=== PATIENT | female | born 1970 | race Caucasian/White ===

== ENCOUNTER 2023-02-10 13:52 | Emergency (ER) | payer MEDICAID ==
[~2023-02-10] VITALS: Ht 167.6 cm; Wt 100.0 kg
[2023-02-10] MEDS ORDERED: NYSTATIN 60 GM POWDER-BULK CONTAINER TP STA (17:27)
[2023-02-10] MEDS ORDERED: fluconazole 150mg tablet PO ONE (17:30)
[2023-02-10] MEDS ORDERED: nystatin 15 GM powder TP ONE (18:15)
[2023-02-10] MEDS ORDERED: HYDROcodone/acetaminophen 10/325mg tab PO ONE (18:20)
[2023-02-10 19:57] VITALS: BP 127/59
--- NOTE | 2023-02-10 19:59 | NUR ---
Pt came late in my shift, and required urgent cleaning of widespread yeast wounds under breasts, abdominal folds, and at groin/shelby area. Began cleaning wounds, first with Ready Soft Bath cloths, and then with washcloths/towel and soft soap, but patient unable to tolerate. Pt stated she had not had a bath in over a year. Reported to MARIANNA Abarca, who ordered Paradise for pain. This was at shift change, and so this staff member was unable to complete procedure, but gave report to oncoming shift RNs. Pt chose to leave prior to cleaning being done, due to partner not being able to come to her room. Pt left AMA in w/c, prior to initial assessments being completed. Provider aware.
== END 2023-02-10 20:01 | disposition home or self-care (01) ==
LOC: ER 13:52
DX: M25.561 Pain in right knee (principal); M25.552 Pain in left hip; B37.2 Candidiasis of skin and nail; M25.562 Pain in left knee; F17.200 Nicotine dependence, unspecified, uncomplicated; Z79.899 Other long term (current) drug therapy
CPT/HCPCS: 72170; 73560; 99284